=== PATIENT | female | born 1985 | race Caucasian/White ===

== ENCOUNTER 2019-03-21 16:32 | Emergency (ER) | payer SELFPAY ==
[~2019-03-21] VITALS: Ht 162.6 cm; Wt 86.2 kg
--- OUTSIDE RECORDS SUMMARY | 2019-03-21 16:37 | XMS REPORT ---
Author Author Migration, Doctor Organization [facility] Address Unknown Phone Unavailable Care Team Providers Care Internal Control Specialist Name Role Phone Migration, Doctor Unavailable Unavailable PROBLEMS Type Condition ICD9-CM Code KSR83-TW Code Onset Dates Condition Status SNOMED Code Problem Tobacco use disorder F17.200 Active 874075613 Problem Anxiety F41.9 Active 15574416 Problem Anxiety state, unspecified 300.00 Active 954298882 ALLERGIES No Information ENCOUNTERS Encounter Location Date Diagnosis [facility] [employer] [address] [id number] [place] [address] Nov, Fluid level behind tympanic membrane of right ear H65.91 and Anxiety F41.9 [facility] [address] [id number] [place] [address] Jun, Anxiety F41.9 [facility] [employer] [address] [id number] [place] [address] Mar, Right acute suppurative otitis media H66.001 and Tobacco use disorder F17.200 [facility] [employer] [address] [id number] [place] [address] February, H. pylori infection A04.8 ; Epigastric pain R10.13 ; Athlete's foot on left B35.3 ; Fluid level behind tympanic membrane of left ear H65.92 and Fluid level behind tympanic membrane of right ear H65.91 [facility] [address] [id number] [place] [address] Dec, Epigastric abdominal pain R10.13 [facility] [address] [facility] [id number] [place] [address] Dec, Epigastric abdominal pain R10.13 and H. pylori infection A04.8 [facility] [address] [id number] [place] [address] Oct, Encounter for dental examination Z01.20 [facility] [address] [facility] [id number] [place] [address] Jan, [facility] [address] [facility] [id number] [address] Jan, [facility] [address] [facility] [id number][place] [address] February, [facility] [address] [facility] [id number][place] [address] Dec, IMMUNIZATIONS No Known Immunizations SOCIAL HISTORY Never Assessed REASON FOR VISIT [facility] [place] PLAN OF CARE VITAL SIGNS MEDICATIONS Unknown Medications RESULTS No Results PROCEDURES No Known procedures INSTRUCTIONS MEDICATIONS ADMINISTERED No Known Medications MEDICAL (GENERAL) HISTORY Type Description Date Medical History H-pylori Medical History Tobacco use disorder Medical History Tobacco use disorder Surgical History section Hospitalization History childbirth only
--- OUTSIDE RECORDS SUMMARY | 2019-03-21 16:38 | XMS REPORT ---
Author Author DIONISIO HARRIS Organization [facility] Address [address] [place] [address] Care Team Providers Care Sheet Rock Sander Name Role Phone DIONISIO HARRIS Unavailable PROBLEMS Type Condition ICD9-CM Code NKL46-ED Code Onset Dates Condition Status SNOMED Code Problem Anxiety F41.9 Active 87178203 Problem Tobacco use disorder F17.200 Active 825354832 Problem Anxiety state, unspecified 300.00 Active 751961171 ALLERGIES Substance Reaction Event Type Date Status Sulfa(sulfonamide Antibiotics) unknown Non Drug Allergy Jun, Active ENCOUNTERS Encounter Location Date Diagnosis [facility] [address] [id number] [place] [address] Jun, Anxiety F41.9 [facility] [address] [id number] [place] [address] Mar, Right acute suppurative otitis media H66.001 and Tobacco use disorder F17.200 [facility] [address] [id number] [place] [address] February, H. pylori infection A04.8 ; Epigastric pain R10.13 ; Athlete's foot on left B35.3 ; Fluid level behind tympanic membrane of left ear H65.92 and Fluid level behind tympanic membrane of right ear H65.91 [facility] [address] [facility] [id number] [place] [address] Dec, Epigastric abdominal pain R10.13 [facility] [address] [facility] [id number][place] [address] Dec, Epigastric abdominal pain R10.13 and H. pylori infection A04.8 [facility] [address] [id number] [place] [address] Oct, Encounter for dental examination Z01.20 [facility] [address] [id number] [place] [address] Jan, [facility] [address] [facility] [id number] [place] [address] Jan, [facility] [address] [facility] [id number] [place] [address] February, [facility] [address] [facility] [id number] [place] [address] Dec, IMMUNIZATIONS No Known Immunizations SOCIAL HISTORY Never Assessed REASON FOR VISIT C/o anxiety attacks , ongoing 4 weeks. SJ, RMA PLAN OF CARE Activity Details Follow Up 4 Weeks Reason:Anxiety f/u VITAL SIGNS Height 64 in 2018-06-17 Weight 197.5 lbs 2018-06-17 Temperature 98.2 degrees Fahrenheit 2018-06-17 Heart Rate 91 bpm 2018-06-17 Respiratory Rate 18 2018-06-17 Oximetry 99 % 2018-06-17 BMI 33.90 kg/m2 2018-06-17 Blood pressure systolic 122 mmHg 2018-06-17 Blood pressure diastolic 76 mmHg 2018-06-17 MEDICATIONS Medication Instructions Dosage Frequency Start Date End Date Duration Status HydrOXYzine Pamoate 25 MG Orally every 8 hrs 1 capsule as needed 8h Jun, 10 days Active Celexa 10 mg Orally Once a day 1 tablet 24h Jun, 30 day(s) Active RESULTS No Results PROCEDURES No Known procedures INSTRUCTIONS MEDICATIONS ADMINISTERED No Known Medications MEDICAL (GENERAL) HISTORY Type Description Date Medical History H-pylori Medical History Tobacco use disorder Medical History Tobacco use disorder Surgical History section Hospitalization History childbirth only
--- OUTSIDE RECORDS SUMMARY | 2019-03-21 16:38 | XMS REPORT ---
Author Author Cheryl Chiang [facility] Address [address] [place], [place] [address] Care Team Providers Care Movie Star Name Role Phone Cheryl Chiang PCP Allergies and Adverse Reactions Name Reaction Notes SULFA (SULFONAMIDE ANTIBIOTICS) Plan of Treatment Not available. Medications Active Name Start Date Estimated Completion Date SIG Comments Celexa 10 mg oral tablet take 1 tablet (10 mg) by oral route once daily hydroxyzine HCl 10 mg oral tablet take 1 tablet by oral route As needed phentermine 37.5 mg oral tablet 06/25/2018 07/25/2018 take 1 tablet (37.5 mg) by oral route once daily before breakfast for 30 days Problem List Not available. Vital Signs Date Time BP-Sys(mm[Hg] BP-Nikole(mm[Hg]) HR(bpm) RR(rpm) Temp WT HT HC BMI BSA BMI Percentile O2 Sat(%) 06/25/2018 3:28:00 PM 124 mmHg 62 mmHg 94 bpm 18 rpm 98.6 F 196.2 lbs 64 in 33.6773 kg/m 2.0047 m 98 % Social History Name Description Comments Alcohol Never Tobacco Current every day smoker History of Procedures Not available. Results Summary Not available. History Of Immunizations Not available. History of Past Illness Name Date of Onset Comments Anxiety and depression BMI 33.0-33.9,adult Jun 25 2018 3:30PM Moderate episode of recurrent major depressive disorder Jun 25 2018 3:30PM Anxiety Jun 25 2018 3:30PM Payers Insurance Name Company Name Plan Name Plan Number Policy Number Policy Group Number Start Date [facility] [id number] N/A History of Encounters Visit Date Visit Type Provider 06/25/2018 Office visit Cheryl Chiang BLUEPRINT PROCESSOR
--- OUTSIDE RECORDS SUMMARY | 2019-03-21 16:38 | XMS REPORT ---
Author Author DIONISIO HARRIS [facility] Address [address] [place] [address] Care Team Providers Care Echo Technologist Name Role Phone DIONISIO HARRIS Unavailable PROBLEMS Type Condition ICD9-CM Code RTU85-PV Code Onset Dates Condition Status SNOMED Code Problem Tobacco use disorder F17.200 Active 770452253 Problem Anxiety state, unspecified 300.00 Active 724066937 ALLERGIES Substance Reaction Event Type Date Status Sulfa(sulfonamide Antibiotics) unknown Non Drug Allergy February, Active ENCOUNTERS Encounter Location Date Diagnosis [facility] [address] [id number] [place] [address] Mar, Right acute suppurative otitis media H66.001 and Tobacco use disorder F17.200 [facility] [address] [id number] [place] [address] February, H. pylori infection A04.8 ; Epigastric pain R10.13 ; Athlete's foot on left B35.3 ; Fluid level behind tympanic membrane of left ear H65.92 and Fluid level behind tympanic membrane of right ear H65.91 [facility] [address] [facility] [id number][place] [id number] Dec, Epigastric abdominal pain R10.13 [facility] [address] [facility] [id number], [place] [address] Dec, Epigastric abdominal pain R10.13 and H. pylori infection A04.8 [facility] [address] [id number] [address] Oct, Encounter for dental examination Z01.20 [facility] [address] [id number] [address] Jan, [facility] [address] [id number], [place] [address] Jan, [facility] [address] [facility] [id number] [place] [address] February, [facility] [address] [facility] [id number] [address] Dec, IMMUNIZATIONS No Known Immunizations SOCIAL HISTORY Never Assessed REASON FOR VISIT Stomach pain, Pt tested POSITIVE for H.pylori in December. completed medication. , Pt stilll having stomach pain, stomach get big as she walks. GAVINO Zarate PLAN OF CARE Activity Details Follow Up prn Reason: VITAL SIGNS Height 64 in 2018-03-11 Weight 190.8 lbs 2018-03-11 Temperature 98.0 degrees Fahrenheit 2018-03-11 Heart Rate 70 bpm 2018-03-11 Respiratory Rate 18 2018-03-11 Oximetry 98 % 2018-03-11 BMI 32.75 kg/m2 2018-03-11 Blood pressure systolic 116 mmHg 2018-03-11 Blood pressure diastolic 74 mmHg 2018-03-11 MEDICATIONS Medication Instructions Dosage Frequency Start Date End Date Duration Status Bismuth Subsalicylate 262 MG Orally 4 times a day 2 tablets 6h February, Mar, 14 days Active Zantac 150 MG Orally Once a day 1 tablet at bedtime 24h Active Omeprazole 20 mg Orally 3 times a day 1 capsule 8h February, 14 days Active Amoxicillin 500 mg Orally 3 times a day 2 tablet 8h February, Mar, 14 days Active RESULTS Name Result Date Reference Range H PYLORI (IN HOUSE) 2018-03-11 H. PYLORI POSITIVE Control + Lot # [id number] Exp date 06/2018 PROCEDURES Procedure Date Ordered Result Body Site IMMUNOASSAY,INFECTIOUS AGENT March 11, 2018 INSTRUCTIONS MEDICATIONS ADMINISTERED No Known Medications MEDICAL (GENERAL) HISTORY Type Description Date Medical History H-pylori Medical History Tobacco use disorder Surgical History section Hospitalization History childbirth only
--- OUTSIDE RECORDS SUMMARY | 2019-03-21 16:38 | XMS REPORT ---
Author Author BARNEY RANDALL [facility] Address [address] [place] [address] Care Team Providers Care Washery Engineer Name Role Phone BARNEY RANDALL Unavailable PROBLEMS Type Condition ICD9-CM Code GPP96-WG Code Onset Dates Condition Status SNOMED Code Problem Tobacco use disorder F17.200 Active 795302444 Problem Anxiety state, unspecified 300.00 Active 668379378 ALLERGIES Substance Reaction Event Type Date Status Sulfa(sulfonamide Antibiotics) unknown Non Drug Allergy Mar, Active ENCOUNTERS Encounter Location Date Diagnosis [facility] [address] [id number] [place] [address] Mar, Right acute suppurative otitis media H66.001 and Tobacco use disorder F17.200 [facility] [address] [facility] [id number] [place] [address] February, H. pylori infection A04.8 ; Epigastric pain R10.13 ; Athlete's foot on left B35.3 ; Fluid level behind tympanic membrane of left ear H65.92 and Fluid level behind tympanic membrane of right ear H65.91 [facility] [address] [facility] [id number] [place] [address] Dec, Epigastric abdominal pain R10.13 [facility] [address] [facility] [id number] CITY[place] [address] Dec, Epigastric abdominal pain R10.13 and H. pylori infection A04.8 [facility] [address] [id number] [place] [address] 17 Oct, 2017 Encounter for dental examination Z01.20 [facility] [address] [id number] [address] Jan, [facility] [address]00565100[place], [place] [address] Jan, [facility] [address] [facility] [id number] [place] [address] February, [facility] [address] [facility] [id number] [place] [address] Dec, IMMUNIZATIONS No Known Immunizations SOCIAL HISTORY Never Assessed REASON FOR VISIT Earache-Patient states she's had pain in right ear sine October, she states that when she started the abx for H-pylori the pain stopped but since she has been d one with that it has come back. Letty RN PLAN OF CARE Activity Details Follow Up prn Reason: VITAL SIGNS Height 64 in 2018-04-07 Weight 201.5 lbs 2018-04-07 Temperature 97.2 degrees Fahrenheit 2018-04-07 Heart Rate 89 bpm 2018-04-07 Respiratory Rate 18 2018-04-07 Oximetry 98 % 2018-04-07 BMI 34.58 kg/m2 2018-04-07 Blood pressure systolic 110 mmHg 2018-04-07 Blood pressure diastolic 72 mmHg 2018-04-07 MEDICATIONS Medication Instructions Dosage Frequency Start Date End Date Duration Status Augmentin 875-125 MG Orally every 12 hrs 1 tablet 12h 10 days Active PredniSONE 10 mg Orally Once a day 3 tablets 24h 5 days Active RESULTS No Results PROCEDURES No Known procedures INSTRUCTIONS MEDICATIONS ADMINISTERED No Known Medications MEDICAL (GENERAL) HISTORY Type Description Date Medical History H-pylori Medical History Tobacco use disorder Surgical History section Hospitalization History childbirth only
--- OUTSIDE RECORDS SUMMARY | 2019-03-21 16:38 | XMS REPORT ---
Author Author GARY VILLASEÑOR [facility] [address] Address [address] [place] [address] Care Team Providers Care Lead Carpenter Name Role Phone VILLASEÑORGARY Unavailable PROBLEMS Type Condition ICD9-CM Code SAW44-VV Code Onset Dates Condition Status SNOMED Code Problem Tobacco use disorder F17.200 Active 956462324 Problem Anxiety state, unspecified 300.00 Active 514332254 ALLERGIES Substance Reaction Event Type Date Status Sulfa(sulfonamide Antibiotics) unknown Non Drug Allergy Dec, Active ENCOUNTERS Encounter Location Date Diagnosis [facility] [address] [id number] [place] [address] Mar, Right acute suppurative otitis media H66.001 and Tobacco use disorder F17.200 [facility] [address] [id number] [place] [address] February, H. pylori infection A04.8 ; Epigastric pain R10.13 ; Athlete's foot on left B35.3 ; Fluid level behind tympanic membrane of left ear H65.92 and Fluid level behind tympanic membrane of right ear H65.91 [facility] [address] [id number][place] [address] Dec, Epigastric abdominal pain R10.13 [facility] [id number][place] [address] Dec, Epigastric abdominal pain R10.13 and H. pylori infection A04.8 [facility] [address] [place] [id number], [place] [address] Oct, Encounter for dental examination Z01.20 [facility] [address] [id number], [place] [address] 14 Jan, 2015 [facility] [place] [id number] [place] [address] Jan, [facility] [place] [address] [facility] [id number] [place] [address] February, [facility] [address] [facility] [id number] [place] [address] Dec, IMMUNIZATIONS No Known Immunizations SOCIAL HISTORY Never Assessed REASON FOR VISIT Abdominal pain KIRTI Rousseau, pain to the upper abd area. PLAN OF CARE Activity Details Follow Up prn, 4 Weeks Reason: VITAL SIGNS Height 64 in 2017-12-24 Weight 179.4 lbs 2017-12-24 Temperature 97.7 degrees Fahrenheit 2017-12-24 Heart Rate 101 bpm 2017-12-24 Respiratory Rate 18 2017-12-24 BMI 30.79 kg/m2 2017-12-24 Blood pressure systolic 120 mmHg 2017-12-24 Blood pressure diastolic 84 mmHg 2017-12-24 MEDICATIONS Medication Instructions Dosage Frequency Start Date End Date Duration Status Meloxicam 7.5 MG Orally every 12 hours 1 tablet 12h 10 days Not-Taking [place] 5-325 MG Orally every 6 hrs 1 tablet as needed 6h 4 days Not-Taking Amoxicillin 875 mg 1 Tablet by Oral route 2 times per day Dec, Not-Taking Omeprazole 20 mg Orally every 12 hrs 1 capsule 12h Dec, 4 weeks Active Clindamycin HCl 150 MG Orally with food every 8 hrs 2 capsules 8h 7 days Not-Taking Advil 200 MG Orally Three times a day 1 tablet with food or milk as needed 8h Active Amoxicillin 500 mg Orally every 12 hours 2 capsule 12h Dec, Dec, 14 days Active Clarithromycin 500 mg Orally every 12 hrs 1 tablet 12h Dec, Dec, 14 days Active Paxil 30 mg 2 tablet by Oral route 1 time per day Dec, Not-Taking Metronidazole 500 mg Orally every 12 hours 1 tablet 12h Dec, Dec, 14 days Active Vistaril 25 mg 1 capsule by Oral route 3PRNanxiety Dec, Not-Taking RESULTS No Results PROCEDURES No Known procedures INSTRUCTIONS MEDICATIONS ADMINISTERED No Known Medications MEDICAL (GENERAL) HISTORY Type Description Date Medical History H-pylori Medical History Tobacco use disorder Surgical History section Hospitalization History childbirth only
--- OUTSIDE RECORDS SUMMARY | 2019-03-21 16:38 | XMS REPORT | Continuity of Care Document ---
Author Organization Unknown Address Unknown Allergies There is no data. Medications There is no data. Problems There is no data. Procedures There is no data. Results There is no data. Encounters ACCT No. Visit Date/Time Discharge Status Pt. Type Provider Facility Loc./Unit Complaint [id number] 06/25/2018 16:17:43 06/25/2018 23:59:59 CLS Outpatient Cheryl Chiang [id number] 11/13/2018 08:00:00 11/13/2018 23:59:59 CLS Outpatient JUS LYON LAC SEE
--- OUTSIDE RECORDS SUMMARY | 2019-03-21 16:38 | XMS REPORT ---
Author Author GARY VILLASEÑOR [facility] Address [address] [place] [address] Care Team Providers Care Insurance Loss Assessor Name Role Phone CHARLEEN GARY Unavailable PROBLEMS Type Condition ICD9-CM Code MTT17-RT Code Onset Dates Condition Status SNOMED Code Problem Tobacco use disorder F17.200 Active 844483560 Problem Anxiety state, unspecified 300.00 Active 903667690 ALLERGIES No Information ENCOUNTERS Encounter Location Date Diagnosis [facility] [address] [id number] [place] [address] Mar, Right acute suppurative otitis media H66.001 and Tobacco use disorder F17.200 [facility] [address] [id number] [place] [address] February, H. pylori infection A04.8 ; Epigastric pain R10.13 ; Athlete's foot on left B35.3 ; Fluid level behind tympanic membrane of left ear H65.92 and Fluid level behind tympanic membrane of right ear H65.91 [facility] [address] [id number] [address] Dec, Epigastric abdominal pain R10.13 [facility] [id number][place] [address] Dec, Epigastric abdominal pain R10.13 and H. pylori infection A04.8 [facility] [address] [place], [place] [id number] [place] [address] Oct, Encounter for dental examination Z01.20 [facility] [place] [address] [id number] [address] Jan, [facility] [place] [address] [id number] [address] Jan, [facility] [place] [id number] [address] February, [facility] [place] [address] [facility] [id number] [place] [address] Dec, IMMUNIZATIONS No Known Immunizations SOCIAL HISTORY Never Assessed REASON FOR VISIT Start Clarithromycin PLAN OF CARE VITAL SIGNS MEDICATIONS Medication Instructions Dosage Frequency Start Date End Date Duration Status Clarithromycin 500 mg Orally every 12 hrs 1 tablet 12h 14 Dec, 2017 Dec, 14 days Active RESULTS No Results PROCEDURES No Known procedures INSTRUCTIONS MEDICATIONS ADMINISTERED No Known Medications MEDICAL (GENERAL) HISTORY Type Description Date Medical History H-pylori Medical History Tobacco use disorder Surgical History section Hospitalization History childbirth only
[2019-03-21 16:43] VITALS: BP 128/92
--- NOTE | 2019-03-21 17:05 | ED EENT ---
History of Present Illness General Chief Complaint: Dental Problems/Pain Stated Complaint: TOOTHACHE Nursing Triage Note: pt states dental pain and ear pain right for 2 days Source: patient Exam Limitations: no limitations History of Present Illness Date Seen by Provider: Mar 21, 2019 Time Seen by Provider: 17:00 Initial Comments 33 year old female who presents to the emergency room with complains fo right upper dental swelling and pain that radiates to right ear for the past 2 days. D enies fevers. Denies seeing PCP or dentist for issues. Location: dental Prearrival Treatment: no prearrival treatment Associated Symptoms: tooth pain Allergies and Home Medications Allergies Coded Allergies: Sulfa (Sulfonamide Antibiotics) (Verified Allergy, Unknown, 03/21/19) Home Medications Amoxicillin/Potassium Clav 1 Each Tablet, 1 EACH PO BID Prescribed by: CASSANDRA KEN on 03/21/19 1707 Hydrocodone Bit/Acetaminophen 1 Tab Tab, 1 EACH PO Q4-6HR PRN for PAIN-MODERATE Prescribed by: CASSANDRA KEN on 03/21/19 1710 Patient Home Medication List Home Medication List Reviewed: Yes Review of Systems Review of Systems Constitutional: see HPI; No chills, No fever Mouth: see HPI, pain, swelling All Other Systems Reviewed Negative Unless Noted: Yes Past Sfuuxzi-Urtwrr-Svnlbv Hx Past Med/Social Hx: Reviewed Nursing Past Med/Soc Hx Patient Social History Recent Foreign Travel: No Contact w/Someone Who Travel: No Recent Infectious Disease Expo: No Family Medical History Reviewed Nursing Family Hx Physical Exam Vital Signs Vital Signs - First Documented 03/21/19 16:43 Temp 98.0 Pulse 83 Resp 18 B/P (MAP) 128/92 (104) Pulse Ox 98 O2 Delivery Room Air Height, Weight, BMI Height: 5'4.00" Weight: 190lbs. oz. 86.668645qh; BMI Method:Estimated General Appearance: WD/WN, no apparent distress Ears: bilateral ear auricle normal, bilateral ear canal normal, bilateral ear TM normal Nose: normal inspection Mouth/Throat: pharynx normal, dental tenderness Cardiovascular: normal peripheral pulses, regular rate, rhythm, no edema, no gallop, no JVD, no murmur Respiratory: chest non-tender, lungs clear, normal breath sounds, no respiratory distress, no accessory muscle use Neurologic/Psychiatric: alert, normal mood/affect, oriented x 3 Skin: normal color, warm/dry Progress/Results/Core Measures Results/Orders My Orders Orders - CASSANDRA KEN Amoxicillin/Clavulanate Tablet (Augmenti (03/22/19 07:00) Vital Signs/I&O Blood Pressure Mean: 104 Departure Impression Primary Impression: Dental abscess Disposition: 01 HOME, SELF-CARE Condition: Stable/Unchanged Departure-Patient Inst. Decision time for Depature: 17:00 Referrals: NO,LOCAL PHYSICIAN (PCP/Family) Primary Care Physician Patient Instructions: Tooth Abscess (DC) Add. Discharge Instructions: Take medication as directed. Follow-up with primary care provider within 1 week for recheck. Call tomorrow morning to schedule appointment for your dentist. Return back to the emergency room for worsening symptoms or concerns as needed. All discharge instructions reviewed with patient and/or family. Voiced understanding. Scripts Hydrocodone Bit/Acetaminophen (Hydrocodone/Acetaminophen 5/325mg Tablet) 1 Tab Tab 1 EACH PO Q4-6HR PRN for PAIN-MODERATE MDD 10 for 3 Days, #14 TAB Prov: CASSANDRA KEN 03/21/19 Amoxicillin/Potassium Clav (Augmentin 875-125 Tablet) 1 Each Tablet 1 EACH PO BID for 10 Days, #20 TAB 0 Refills Prov: CASSANDRA KEN 03/21/19 Images Mouth/Nose 1 - Caries, Fracture Tooth, Swelling, Tenderness CASSANDRA KEN Mar 21, 2019 17:05
[2019-03-21] MEDS ORDERED: AMOX-358 PO (17:07)
[2019-03-21] MEDS ORDERED: ACHD5005 PO (17:10)
[2019-03-22] MEDS ORDERED: AUGMENTIN 875 MG TAB (AMOXICILLIN/CLAVULANATE) PO SCH (07:00)
== END 2019-03-21 17:23 | disposition home or self-care (01) ==
LOC: ER 16:34
DX: K04.7 Periapical abscess without sinus (principal); Z88.2 Allergy status to sulfonamides
CPT/HCPCS: 99281

== ENCOUNTER 2019-03-23 01:39 | Emergency (ER) | payer SELFPAY ==
[~2019-03-23 01:39] MED LIST: ACHD5005 PO; AMOX-358 PO
--- NOTE | 2019-03-23 01:47 | NUR ---
i went to get pt from w/r. the pt and a adult male was in between the 2 doors of the exit and the male hollered out they are leaving or something similiar. they headed out the door rest of the way. pt lwbs after registration and before i or dr seen pt.
--- OUTSIDE RECORDS SUMMARY | 2019-03-23 01:47 | XMS REPORT | Continuity of Care Document ---
Author Organization Unknown Address Unknown Allergies There is no data. Medications There is no data. Problems There is no data. Procedures There is no data. Results There is no data. Encounters ACCT No. Visit Date/Time Discharge Status Pt. Type Provider Facility Loc./Unit Complaint [id number] 06/25/2018 16:17:43 06/25/2018 23:59:59 CLS Outpatient Cheryl Chiang [id number] 11/13/2018 08:00:00 11/13/2018 23:59:59 CLS Outpatient JUS LYON LAC SEE
== END 2019-03-23 01:47 | disposition left against medical advice (07) ==
LOC: EDUNIT# 01:39 → ER 01:43
DX: S00.522A Blister (nonthermal) of oral cavity, initial encounter (principal); K13.79 Other lesions of oral mucosa; Z88.2 Allergy status to sulfonamides; X58.XXXA Exposure to other specified factors, initial encounter